=== PATIENT | male | born 1995 | race Two or more races ===

== ENCOUNTER 2023-10-06 15:51 | Inpatient (IN) | payer MEDICAID ==
[~2023-10-06] VITALS: Ht 165.1 cm; Wt 56.2 kg
[2023-10-06] MEDS ORDERED: ONDANSETRON HCL/PF 4 MG/2 ML VIAL ONE (16:16)
[2023-10-06] MEDS: IV NS 0.9% 1,000 ML BAG IV ONE (16:17)
[2023-10-06] MEDS: ONDANSETRON HCL/PF 4 MG/2 ML VIAL IVP ONE (16:18)
[2023-10-06 16:31] LABS: BASOPHILS % (AUTO) 0.2 % (0.0-2.0); EOSINOPHILS % (AUTO) 0.1 % (0.0-6.0); HEMATOCRIT 33 % (39-51); HEMOGLOBIN 10.1 g/dL (13.5-17.5); LYMPHOCYTES # (AUTO) 1.5 K/uL (0.8-4.8); LYMPHOCYTES % (AUTO) 20.2 % (20.0-44.0); MEAN CORPUSCULAR HEMOGLOBIN 28 PG (26.0-33.0); MEAN CORPUSCULAR HGB CONC 31 g/dl (31.0-36.0); MEAN CORPUSCULAR VOLUME 93 fL (80-96); MONOCYTES # (AUTO) 0.4 K/uL (0.1-1.30); MONOCYTES % (AUTO) 5.6 % (2.0-12.0); NEUTROPHILS # (AUTO) 5.5 K/uL (1.8-8.9); NEUTROPHILS % (AUTO) 73.9 % (43.0-81.0); PLATELET COUNT (AUTO) 459 K/uL (150-450); RED BLOOD CELL COUNT(AUTO) 3.57 MIL/uL (4.5-6.0); RED CELL DISTRIBUTION WIDTH 19.4 % (11.5-15.0); WHITE BLOOD COUNT (AUTO) 7.4 K/uL (4.3-11.0)
[2023-10-06] MEDS ORDERED: INSU100I14 SQ (16:41)
[2023-10-06] MEDS ORDERED: INSU100I30 SQ (16:41)
[2023-10-06 16:44] LABS: MAGNESIUM 2.3 mg/dL (1.8-2.4); PHOSPHORUS 4.4 mg/dL (2.5-4.9)
[2023-10-06 16:52] LABS: INR 0.95 (0.91-1.10); PARTIAL THROMBOPLASTIN TIME 24.1 SEC (24.3-34.3); PROTHROMBIN TIME 10.1 SECS (9.2-11.1)
[2023-10-06 16:54] LABS: ALANINE AMINOTRANSFERASE 41 U/L (12-78); ALBUMIN 3.4 g/dL (3.4-5.0); ALKALINE PHOSPHATASE 212 U/L (46-116); ASPARTATE AMINOTRANSFERASE 14 U/L (15-37); BILIRUBIN,DIRECT 0.2 mg/dL (0.0-0.2); BILIRUBIN,TOTAL 1.3 mg/dL (0.2-1.0); CALCIUM, SERUM 9.1 mg/dL (8.5-10.1); CARBON DIOXIDE 11 mmol/L (21-32); CHLORIDE 90 mmol/L (98-107); CREATININE 0.9 mg/dL (0.6-1.3); LIPASE 31 U/L (16-77); POTASSIUM 5.1 mmol/L (3.5-5.1); SODIUM SERUM 125 mmol/L (136-145); UREA NITROGEN, BLOOD 21 mg/dL (7-18)
[2023-10-06 16:56] LABS: GLUCOSE 781 mg/dL (74-106)
[2023-10-06 17:02] LABS: ACETONE, SERUM MODERATE (NEGATIVE)
[2023-10-06] MEDS: INSULIN REGULAR, HUMAN 100 UNITS in IV NS 0.9% 100 ML IV PRN (18:15)
[2023-10-06] MEDS: IV NS 0.9% 1,000 ML IV PRN (18:20)
[2023-10-06 18:51] LABS: CALCIUM, SERUM 7.9 mg/dL (8.5-10.1); CREATININE 0.7 mg/dL (0.6-1.3); MAGNESIUM 1.9 mg/dL (1.8-2.4); PHOSPHORUS 3.8 mg/dL (2.5-4.9); POTASSIUM 4.5 mmol/L (3.5-5.1)
[2023-10-06 20:32] LABS: CREATININE 0.6 mg/dL (0.6-1.3); PHOSPHORUS 3.1 mg/dL (2.5-4.9); POTASSIUM 3.7 mmol/L (3.5-5.1)
[2023-10-06 20:33] LABS: CALCIUM, SERUM 7.9 mg/dL (8.5-10.1)
[2023-10-06 22:28] LABS: CREATININE 0.7 mg/dL (0.6-1.3); MAGNESIUM 1.8 mg/dL (1.8-2.4); PHOSPHORUS 2.9 mg/dL (2.5-4.9); POTASSIUM 3.5 mmol/L (3.5-5.1)
[2023-10-06 22:35] LABS: CALCIUM, SERUM 7.9 mg/dL (8.5-10.1)
[2023-10-07 03:46] LABS: CALCIUM, SERUM 7.8 mg/dL (8.5-10.1); CREATININE 0.5 mg/dL (0.6-1.3); MAGNESIUM 1.8 mg/dL (1.8-2.4); PHOSPHORUS 3.5 mg/dL (2.5-4.9); POTASSIUM 3.7 mmol/L (3.5-5.1)
[2023-10-07] MEDS: IV D5/0.45 NACL 1,000 ML IV SCH (03:46)
[2023-10-07 04:00] VITALS: BP 97/69; TEMP 97.7; O2SAT 100
[2023-10-07] MEDS: BLOOD SUGAR DIAGNOSTIC 1 EACH STRIP IN ONE (04:13)
[2023-10-07] MEDS: INSULIN REGULAR, HUMAN 100 UNIT in IV NS 0.9% 99 ML IV PRN (04:32)
[2023-10-07 05:00] VITALS: BP 98/73; O2SAT 100
[2023-10-07] MEDS: BLOOD SUGAR DIAGNOSTIC 1 EACH STRIP IN SCH (05:20)
[2023-10-07 06:00] VITALS: BP 95/68; O2SAT 100
[2023-10-07] MEDS: POTASSIUM CL. PREMIX PERIPHER. 50 ML IV SCH (06:03)
[2023-10-07] MEDS: Magnesium 1GM/D5W 100ML PREMIX 100 ML IV SCH (06:07)
[2023-10-07 07:00] VITALS: BP 94/65; O2SAT 99
== END 2023-10-07 09:06 | disposition left against medical advice (07) | DRG 420 ==
LOC: ER 15:56 → TRANSITION 10-07 00:38 → ICU 10-07 01:31
PROVIDERS: ADMIT Nurse Practitioner Acute Care; ATTEND Nurse Practitioner Acute Care
DX: E10.10 Type 1 diabetes mellitus with ketoacidosis without coma (principal); E87.1 Hypo-osmolality and hyponatremia; D64.9 Anemia, unspecified; D75.839 Thrombocytosis, unspecified; E80.6 Other disorders of bilirubin metabolism; Z79.4 Long term (current) use of insulin; Z91.199 Patient's noncompliance with other medical treatment and regimen due to unspecified reason
CPT/HCPCS: 36415; 71045-TC; 80048-TC; 80076-TC; 82010-TC; 82803-TC; 82962-TC; 83690-TC; 83735-TC; 84100-TC; 84484-TC; 85025-TC; 85730-TC; A4223; G0378; J1815; J2405; J3475; J3480; J3490; J7030; J7050